=== PATIENT | female | born 1945 | race Hispanic/Latino ===

== ENCOUNTER 2020-01-17 22:06 | Inpatient (IN) | payer OTHER, MEDICARE ==
[~2020-01-17] VITALS: Ht 152.4 cm; Wt 63.0 kg
[2020-01-17] MEDS ORDERED: ACETAMINOPHEN 325 MG TAB ONE (22:47)
[2020-01-17 22:51] LABS: RAPID GROUP A STREP NEGATIVE (NEGATIVE)
[2020-01-17 22:57] LABS: BASOPHILS % (AUTO) 0.1 % (0.0-5.0); HEMATOCRIT 36.1 % (36-48); LYMPHOCYTES % (AUTO) 12.7 % (21.0-51.0); MEAN CORPUSCULAR HEMOGLOBIN 28.2 pg (27.0-33.0); MEAN CORPUSCULAR HGB CONC 32.4 g/dL (32.0-36.0); MONOCYTES % (AUTO) 9.4 % (3.0-13.0); NEUTROPHILS % (AUTO) 77.7 % (40.0-77.0); PLATELET COUNT (AUTO) 210 K/uL (130-400); RED BLOOD CELL COUNT(AUTO) 4.15 MIL/uL (4.00-5.50); RED CELL DISTRIBUTION WIDTH 13.2 % (11.0-15.5); WHITE BLOOD COUNT (AUTO) 7.3 K/uL (4.8-10.8)
[2020-01-17 23:06] LABS: CREATININE 2.4 mg/dL (0.5-1.5); POTASSIUM 3.8 mmol/L (3.5-5.1)
[2020-01-17 23:11] LABS: ALBUMIN 3.1 g/dL (3.5-5.0); BILIRUBIN,TOTAL 0.4 mg/dL (0.2-1.0); TOTAL PROTEIN, SERUM 7.9 g/dL (6.0-8.3)
[2020-01-17 23:12] LABS: INR 0.93 (0.85-1.15); PARTIAL THROMBOPLASTIN TIME 30.6 SEC (26.3-35.5); PROTHROMBIN TIME 10.1 SEC (9.6-11.6)
[2020-01-17 23:28] LABS: B-TYPE NATRIURETIC PEPTIDE 11 pg/mL (0-100)
[2020-01-17 23:42] LABS: ABG BASE EXCESS -2.2 mmol/L (-2.0-3.0); ABG HCO3 22.6 mmol/L (21.0-28.0); ABG OXYGEN SATURATION 91.1 % (95.0-99.0); ABG PCO2 39 mmHg (32-45)
[2020-01-18] MEDS ORDERED: CEFTRIAXONE SODIUM 1 GM ONE ×2 (00:11→22:24)
[2020-01-18] MEDS ORDERED: AZITHROMYCIN 500MG+NS 250ML 250 ML IV ONE (00:11)
[2020-01-18] MEDS ORDERED: OSELTAMIVIR PHOSPHATE 75 MG CAP ONE ×2 (00:12→22:24)
[2020-01-18] MEDS ORDERED: SODIUM CHLORIDE 0.9% 500ML 500 ML IV ONE (01:36)
[2020-01-18] MEDS: CEFTRIAXONE SODIUM 1 GM IVP SCH (02:30)
[2020-01-18] MEDS ORDERED: IPRATROPIUM/ALBUTEROL SULFATE 3 ML SOLUTION IH PRN (02:30)
[2020-01-18] MEDS ORDERED: ONDANSETRON HCL 4 MG/2 ML VIAL IVP PRN (02:30)
[2020-01-18] MEDS ORDERED: ACETAMINOPHEN 325 MG TAB PO PRN (02:30)
[2020-01-18] MEDS ORDERED: DEXAMETHASONE SOD PHOSPHATE 10MG/ML 1ML VIAL ONE (03:00)
[2020-01-18] MEDS: AZITHROMYCIN 500MG+NS 250ML 250 ML IV SCH (03:00)
[2020-01-18] MEDS: DEXAMETHASONE SOD PHOSPHATE 4 MG/ML 1ML VIAL IVP SCH (03:00)
[2020-01-18 06:24] LABS: BASOPHILS % (AUTO) 0.3 % (0.0-5.0); EOSINOPHILS % (AUTO) 1.8 % (0.0-8.0); HEMATOCRIT 33.8 % (36-48); LYMPHOCYTES % (AUTO) 10.5 % (21.0-51.0); MEAN CORPUSCULAR HEMOGLOBIN 28.6 pg (27.0-33.0); MEAN CORPUSCULAR HGB CONC 32.5 g/dL (32.0-36.0); MEAN CORPUSCULAR VOLUME 87.8 fL (79-99); NEUTROPHILS % (AUTO) 82.3 % (40.0-77.0); PLATELET COUNT (AUTO) 191 K/uL (130-400); RED BLOOD CELL COUNT(AUTO) 3.85 MIL/uL (4.00-5.50); RED CELL DISTRIBUTION WIDTH 13.3 % (11.0-15.5); WHITE BLOOD COUNT (AUTO) 6.8 K/uL (4.8-10.8)
[2020-01-18 06:48] LABS: ALBUMIN 2.7 g/dL (3.5-5.0); BILIRUBIN,TOTAL 0.3 mg/dL (0.2-1.0); CREATININE 2.4 mg/dL (0.5-1.5); POTASSIUM 3.9 mmol/L (3.5-5.1); TOTAL PROTEIN, SERUM 7.1 g/dL (6.0-8.3)
[2020-01-18] MEDS ORDERED: ENOXAPARIN SODIUM 60 MG/0.6 ML SQ ONE (10:39)
[2020-01-18] MEDS ORDERED: FAMOTIDINE/PF 20 MG/2 ML VIAL IV ONE (10:39)
[2020-01-18] MEDS: FAMOTIDINE/PF 20 MG/2 ML VIAL IV SCH (10:40)
[2020-01-18] MEDS: ENOXAPARIN SODIUM 40 MG/0.4 ML SYRINGE SQ SCH (10:40)
--- NOTE | 2020-01-18 11:11 | NUR ---
DCP: HOME Sw unable to meet with pt who is in ER. Per daughter Tiesha Urban [phone], pt's grand daughter Viji Marquis lives with pt. Pt is independent, uses no DME. has daily provider (dgtr did not know # of hours or agency) attends [facility]. Per daughter pt was attending until last week when advanced developer tested positive for covid. Family transports as needed. PCP is Dr Hopkins and pt uses [facility] for rx. Plan is home [place] Addendum: 01/18/20 at 1115 by CK DENNIS SS Amended: Links added.
[2020-01-18] MEDS ORDERED: COMPOUND PO MISCELLANEOUS 1 EACH MISC MISC PRN (12:30)
[2020-01-18] MEDS ORDERED: OSELTAMIVIR SUSP 15 MG/ML (6 CAPS/29ML) PO SCH ×2 (13:00)
[2020-01-18] MEDS ORDERED: MAGNESIUM 2GM PREMIX 50ML 50 ML IV PRN (16:30)
[2020-01-18] MEDS ORDERED: POTASSIUM CHLORIDE 20MEQ/100ML 100 ML IV PRN ×2 (16:30)
[2020-01-18] MEDS ORDERED: POTASSIUM CHLORIDE 10% ELIXIR 20 MEQ/15 ML UDCUP PO PRN (16:30)
[2020-01-18] MEDS ORDERED: LIDOCAINE HCL-MPF 1% 2ML VIAL IV PRN ×2 (16:30)
[2020-01-18] MEDS ORDERED: INSULIN HUMULIN R 100 UNIT/ML 3ML ONE ×2 (16:53→22:25)
[2020-01-18] MEDS: INSULIN HUMULIN R 100 UNIT/ML 3ML SQ SCH ×2 (16:55→21:00)
[2020-01-18] MEDS ORDERED: FOLI0.8C PO (17:09)
[2020-01-18] MEDS ORDERED: ASPI-1443 PO (17:09)
[2020-01-18] MEDS ORDERED: BACL10TA PO (17:09)
[2020-01-18] MEDS ORDERED: LOSA1TAB54 PO (17:09)
[2020-01-18] MEDS ORDERED: EMPA10TA PO (17:09)
[2020-01-18] MEDS ORDERED: ATOR10 PO (17:09)
[2020-01-18] MEDS: INSULIN GLARGINE 100 UNITS/ML 10 ML VIAL SQ SCH (21:00)
[2020-01-18] MEDS ORDERED: OSELTAMIVIR PHOSPHATE 75 MG CAP PO SCH (21:00)
[2020-01-18] MEDS ORDERED: ENOXAPARIN SODIUM 40 MG/0.4 ML SYRINGE SQ ONE (22:24)
[2020-01-19] MEDS ORDERED: DEXAMETHASONE SOD PHOSPHATE 10MG/ML 1ML VIAL ONE (00:15)
[2020-01-19] MEDS ORDERED: AZITHROMYCIN 500MG+NS 250ML 0 ML IV ONE (00:15)
[2020-01-19] MEDS ORDERED: AZITHROMYCIN 500MG+NS 250ML 250 ML IV ONE (00:18)
[2020-01-19] MEDS: CEFTRIAXONE SODIUM 1 GM IVP SCH ×2 (02:30→21:10)
[2020-01-19] MEDS: DEXAMETHASONE SOD PHOSPHATE 4 MG/ML 1ML VIAL IVP SCH ×2 (03:00→21:10)
[2020-01-19] MEDS: AZITHROMYCIN 500MG+NS 250ML 250 ML IV SCH ×2 (03:00→23:26)
[2020-01-19 06:32] LABS: BASOPHILS % (AUTO) 0.1 % (0.0-5.0); HEMATOCRIT 32.9 % (36-48); LYMPHOCYTES % (AUTO) 6.9 % (21.0-51.0); MEAN CORPUSCULAR HEMOGLOBIN 27.7 pg (27.0-33.0); MEAN CORPUSCULAR HGB CONC 31.9 g/dL (32.0-36.0); MEAN CORPUSCULAR VOLUME 86.8 fL (79-99); MONOCYTES % (AUTO) 3.2 % (3.0-13.0); NEUTROPHILS % (AUTO) 89.1 % (40.0-77.0); PLATELET COUNT (AUTO) 199 K/uL (130-400); RED BLOOD CELL COUNT(AUTO) 3.79 MIL/uL (4.00-5.50); RED CELL DISTRIBUTION WIDTH 13.2 % (11.0-15.5)
[2020-01-19] MEDS: INSULIN HUMULIN R 100 UNIT/ML 3ML SQ SCH ×4 (07:30→21:07)
[2020-01-19 07:33] LABS: INR 0.96 (0.85-1.15); PARTIAL THROMBOPLASTIN TIME 39.2 SEC (26.3-35.5); PROTHROMBIN TIME 10.4 SEC (9.6-11.6)
[2020-01-19 07:51] LABS: B-TYPE NATRIURETIC PEPTIDE 67 pg/mL (0-100)
[2020-01-19 08:17] LABS: ERYTHROCYTE SEDIMENTATION RATE 73 MM/HR (0-30)
[2020-01-19 08:33] LABS: ALANINE AMINOTRANSFERASE 12 U/L (12-78); ALBUMIN 2.8 g/dL (3.5-5.0); ASPARTATE AMINOTRANSFERASE 18 U/L (10-37); BILIRUBIN,TOTAL 0.2 mg/dL (0.2-1.0); CARBON DIOXIDE 25 mmol/L (21-32); CHLORIDE 102 mmol/L (101-111); CHOLESTEROL 148 mg/dL (<200); CREATINE KINASE, TOTAL 85 U/L (21-232); CREATININE 2.1 mg/dL (0.5-1.5); GLOMERULAR FILTR. RATE CALC 25 mL/min (>60); GLUCOSE,RANDOM 266 mg/dL (70-105); HDL CHOLESTEROL 46 mg/dL (35-85); LACTATE DEHYDROGENASE 201 U/L (81-234); LDL DIRECT 79 mg/dL (0-99); POTASSIUM 3.9 mmol/L (3.5-5.1); SODIUM SERUM 138 mmol/L (136-145); THYROID STIMULATING HORMONE 0.29 uIU/mL (0.36-3.74); TOTAL PROTEIN, SERUM 7.5 g/dL (6.0-8.3); TRIGLYCERIDES 148 mg/dL (30-200); UREA NITROGEN, BLOOD 60 mg/dL (7-18)
[2020-01-19 08:51] LABS: ABG BASE EXCESS -3.6 mmol/L (-2.0-3.0); ABG HCO3 22.1 mmol/L (21.0-28.0); ABG OXYGEN SATURATION 98.3 % (95.0-99.0); ABG PCO2 42 mmHg (32-45)
[2020-01-19] MEDS: ENOXAPARIN SODIUM 40 MG/0.4 ML SYRINGE SQ SCH ×3 (09:00→20:29)
[2020-01-19] MEDS ORDERED: ENOXAPARIN SODIUM 40 MG/0.4 ML SYRINGE SQ ONE (09:17)
[2020-01-19] MEDS ORDERED: FAMOTIDINE/PF 20 MG/2 ML VIAL IV ONE (09:18)
[2020-01-19] MEDS: FAMOTIDINE/PF 20 MG/2 ML VIAL IV SCH (09:21)
[2020-01-19] MEDS: COMPOUNDING VEHICLE NO 8 PO SCH ×6 (09:38→20:28)
[2020-01-19] MEDS: [UNRECOGNIZED DRUG - OTHER] PO SCH ×6 (09:38→20:28)
[2020-01-19] MEDS: OSELTAMIVIR PHOSPHATE PO SCH ×6 (09:38→20:28)
[2020-01-19 09:45] LABS: HEMOGLOBIN A1C 8.2 % (4.0-6.0)
[2020-01-19] MEDS ORDERED: PHARMACY COMMUNICATION MISC SCH (12:15)
[2020-01-19 12:23] VITALS: BP 128/63
[2020-01-19] MEDS: FUROSEMIDE 10 MG/ML 2ML VIAL IV SCH (14:30)
[2020-01-19 16:00] VITALS: BP 132/69
[2020-01-19 20:33] VITALS: BP 125/68
[2020-01-19] MEDS: INSULIN GLARGINE 100 UNITS/ML 10 ML VIAL SQ SCH (21:08)
[2020-01-19 23:44] VITALS: BP 138/74
[2020-01-20] MEDS: FUROSEMIDE 10 MG/ML 2ML VIAL IV SCH ×2 (01:48→14:39)
[2020-01-20 03:25] VITALS: BP 124/58
[2020-01-20 04:33] LABS: CREATININE 2.4 mg/dL (0.5-1.5); POTASSIUM 3.7 mmol/L (3.5-5.1)
--- NOTE | 2020-01-20 06:25 | NUR ---
D-dimer: [phone] Called on-call [employer], no return call at this time.
[2020-01-20] MEDS: INSULIN HUMULIN R 100 UNIT/ML 3ML SQ SCH ×4 (06:31→20:58)
[2020-01-20 08:00] VITALS: BP 161/71
--- NOTE | 2020-01-20 08:46 | NUR ---
DIRECTIVES SW currently unable to assist pt with completing directives since she is in Covid unit. SW to follow and assist if possible when pt is transferred out of unit.
[2020-01-20] MEDS: ENOXAPARIN SODIUM 40 MG/0.4 ML SYRINGE SQ SCH ×2 (09:45→20:55)
[2020-01-20] MEDS: FAMOTIDINE/PF 20 MG/2 ML VIAL IV SCH (09:45)
[2020-01-20] MEDS: OSELTAMIVIR PHOSPHATE PO SCH ×6 (09:54→20:54)
[2020-01-20] MEDS: COMPOUNDING VEHICLE NO 8 PO SCH ×6 (09:54→20:54)
[2020-01-20] MEDS: [UNRECOGNIZED DRUG - OTHER] PO SCH ×6 (09:54→20:54)
[2020-01-20 12:00] VITALS: BP 157/74
[2020-01-20] MEDS ORDERED: BACLOFEN 10 MG TABLET PO PRN (15:45)
[2020-01-20 16:00] VITALS: BP 149/67
[2020-01-20] MEDS ORDERED: DEXTROSE 50%-WATER 50 ML DISP.SYRIN IV PRN (16:00)
[2020-01-20] MEDS ORDERED: POTASSIUM CHLORIDE 20MEQ/100ML 100 ML IV PRN (16:00)
[2020-01-20] MEDS ORDERED: POTASSIUM CHLORIDE 10% ELIXIR 20 MEQ/15 ML UDCUP PO PRN (16:00)
[2020-01-20] MEDS ORDERED: GLUCAGON 1MG KIT 1 MG ML IM PRN (16:00)
[2020-01-20] MEDS ORDERED: POTASSIUM CHLORIDE 20 MEQ ERTAB PO PRN (16:00)
[2020-01-20] MEDS ORDERED: LIDOCAINE HCL-MPF 1% 2ML VIAL IV PRN (16:00)
[2020-01-20] MEDS ORDERED: INSULIN HUMULIN R 100 UNIT/ML 3ML SQ SCH (16:30)
--- NOTE | 2020-01-20 18:34 | NUR ---
PATIENT RECEIVED THIS AM AAOX4. ABLE TO MAKE NEEDS KNOWN. COVID+ WITH PRECAUTIONS MAINTAINED THROUGHOUT THE DAY. AMBULATORY IN ROOM FROM BED TO BATHROOM. MILD DYSPNEA WITH EXERTION. 2L VIA NC. CONTINENT OF B/B. BLOOD GLUCOSES ELEVATED AT LUNCH AND SUPPER REQUIRING 8 UNITS OF REGULAR INSULIN COVERAGE, MICRO PALEONTOLOGIST NOTIFIED TWICE TODAY. NEW ORDER RECEIVED TO INCREASED SSI TO LEVEL 2. PT'S HOME MEDICATIONS CONTINUED. ROCEPHIN DISCONTINUED. NEW ORDER FOR BACTRIM DS AFTER URINE SENSITIVITY RESULTED TODAY. BED IN LOWEST LOCKED POSITION, SR UP X2, CALL CAI IN HAND. SAFETY PRECAUTIONS MAINTAINED.
[2020-01-20 20:36] VITALS: BP 127/70
[2020-01-20] MEDS: ATORVASTATIN CALCIUM 20 MG TABLET PO SCH (20:55)
[2020-01-20] MEDS: SULFAMETHOX-TMP DS 800/160 TAB PO SCH (20:55)
[2020-01-20] MEDS: INSULIN GLARGINE 100 UNITS/ML 10 ML VIAL SQ SCH (20:56)
[2020-01-20] MEDS: DEXAMETHASONE SOD PHOSPHATE 4 MG/ML 1ML VIAL IVP SCH (22:47)
[2020-01-20] MEDS: AZITHROMYCIN 500MG+NS 250ML 250 ML IV SCH (22:47)
--- NOTE | 2020-01-20 23:31 | NUR ---
assessment Patient is alert and oriented times 4. No complaints of any pain. Patient is on oxygen at 2 liters. Patient has an IV in her right forearm saline locked. No skin issues. Will continue to monitor.
[2020-01-20 23:34] VITALS: BP 141/72
[2020-01-21] MEDS: FUROSEMIDE 10 MG/ML 2ML VIAL IV SCH ×2 (01:52→14:32)
[2020-01-21 03:21] VITALS: BP 143/68
[2020-01-21 06:06] LABS: HEMATOCRIT 36.4 % (36-48); LYMPHOCYTES % (AUTO) 7.4 % (21.0-51.0); MEAN CORPUSCULAR HEMOGLOBIN 28.1 pg (27.0-33.0); MEAN CORPUSCULAR HGB CONC 32.1 g/dL (32.0-36.0); MEAN CORPUSCULAR VOLUME 87.3 fL (79-99); MONOCYTES % (AUTO) 2.1 % (3.0-13.0); NEUTROPHILS % (AUTO) 90.1 % (40.0-77.0); PLATELET COUNT (AUTO) 297 K/uL (130-400); RED BLOOD CELL COUNT(AUTO) 4.17 MIL/uL (4.00-5.50); RED CELL DISTRIBUTION WIDTH 13.2 % (11.0-15.5); WHITE BLOOD COUNT (AUTO) 8.9 K/uL (4.8-10.8)
[2020-01-21 06:38] LABS: ALBUMIN 3.1 g/dL (3.5-5.0); BILIRUBIN,TOTAL 0.2 mg/dL (0.2-1.0); CREATININE 2.1 mg/dL (0.5-1.5); POTASSIUM 3.4 mmol/L (3.5-5.1); TOTAL PROTEIN, SERUM 7.7 g/dL (6.0-8.3)
[2020-01-21] MEDS: INSULIN HUMULIN R 100 UNIT/ML 3ML SQ SCH ×4 (06:44→20:57)
[2020-01-21 08:00] VITALS: BP 148/66
[2020-01-21] MEDS: ASPIRIN 81 MG EC TAB PO SCH (08:31)
[2020-01-21] MEDS: FOLIC ACID 1 MG TABLET PO SCH (08:31)
[2020-01-21] MEDS: POTASSIUM CHLORIDE 20 MEQ ERTAB PO PRN ×2 (08:31→14:32)
[2020-01-21] MEDS: FAMOTIDINE/PF 20 MG/2 ML VIAL IV SCH (08:31)
[2020-01-21] MEDS: HYDROCHLOROTHIAZIDE 25 MG TABLET PO SCH (08:31)
[2020-01-21] MEDS: SULFAMETHOX-TMP DS 800/160 TAB PO SCH ×2 (08:31→20:55)
[2020-01-21] MEDS: LOSARTAN 100 MG TABLET PO SCH (08:31)
[2020-01-21] MEDS: ENOXAPARIN SODIUM 60 MG/0.6 ML SQ SCH ×2 (08:32→20:55)
[2020-01-21] MEDS: [UNRECOGNIZED DRUG - OTHER] PO SCH ×6 (08:46→20:56)
[2020-01-21] MEDS: COMPOUNDING VEHICLE NO 8 PO SCH ×6 (08:46→20:56)
[2020-01-21] MEDS: OSELTAMIVIR PHOSPHATE PO SCH ×6 (08:46→20:56)
[2020-01-21 12:00] VITALS: BP 135/63
[2020-01-21 16:00] VITALS: BP 141/65
--- NOTE | 2020-01-21 18:25 | NUR ---
AAOX4. OOB IN CHAIR IN NO APPARENT DISTRESS. COVID+, ISOLATION PRECAUTIONS MAINTAINED. DENIES ANY NEEDS/PAIN. RESPIRATIONS EVEN AND UNLABORED AT REST. TOLERATING ROOM AIR, 02 SATS STABLE. AMBULATORY IN ROOM. BLOOD GLUCOSES ELEVATED AT LUNCH AND SUPPER REQUIRING REGULAR SSI COVERAGE. CONTINUOUS MONITORING ONGOING. SAFETY MEASURES IN PLACE.
[2020-01-21 19:00] VITALS: BP 132/71
[2020-01-21] MEDS: DEXAMETHASONE SOD PHOSPHATE 4 MG/ML 1ML VIAL IVP SCH (20:55)
[2020-01-21] MEDS: ATORVASTATIN CALCIUM 20 MG TABLET PO SCH (20:55)
[2020-01-21] MEDS: INSULIN GLARGINE 100 UNITS/ML 10 ML VIAL SQ SCH (20:58)
[2020-01-21 23:39] VITALS: BP 128/60
[2020-01-21] MEDS: AZITHROMYCIN 500MG+NS 250ML 250 ML IV SCH (23:59)
[2020-01-22] MEDS: FUROSEMIDE 10 MG/ML 2ML VIAL IV SCH ×2 (01:56→14:34)
--- NOTE | 2020-01-22 02:13 | NUR ---
ASSESSMENT PT. ALERT AND ORIENTED TIMES 4 NO COMPLAINTS OF ANY PAIN. PT. UP INDEPENDENTLY TO THE BATHROOM. PT. CONTINUES TO BE ON ROOM AIR. WILL CONTINUE TO MONITOR PATIENTS CONDITION.
[2020-01-22 03:56] VITALS: BP 122/58
[2020-01-22 05:18] LABS: ABG BASE EXCESS 2.6 mmol/L (-2.0-3.0); ABG OXYGEN SATURATION 92.9 % (95.0-99.0); ABG PCO2 41 mmHg (32-45)
[2020-01-22 06:17] LABS: BASOPHILS % (AUTO) 0.1 % (0.0-5.0); HEMATOCRIT 35.2 % (36-48); LYMPHOCYTES % (AUTO) 7.7 % (21.0-51.0); MEAN CORPUSCULAR HEMOGLOBIN 27.7 pg (27.0-33.0); MEAN CORPUSCULAR HGB CONC 32.7 g/dL (32.0-36.0); MEAN CORPUSCULAR VOLUME 84.8 fL (79-99); MONOCYTES % (AUTO) 3.1 % (3.0-13.0); NEUTROPHILS % (AUTO) 88.6 % (40.0-77.0); PLATELET COUNT (AUTO) 301 K/uL (130-400); RED BLOOD CELL COUNT(AUTO) 4.15 MIL/uL (4.00-5.50); WHITE BLOOD COUNT (AUTO) 9.3 K/uL (4.8-10.8)
[2020-01-22 06:44] LABS: BILIRUBIN,TOTAL 0.3 mg/dL (0.2-1.0); CREATININE 2.5 mg/dL (0.5-1.5); TOTAL PROTEIN, SERUM 7.3 g/dL (6.0-8.3)
[2020-01-22] MEDS: INSULIN HUMULIN R 100 UNIT/ML 3ML SQ SCH ×4 (08:39→20:31)
[2020-01-22] MEDS: LOSARTAN 100 MG TABLET PO SCH (08:40)
[2020-01-22] MEDS: SULFAMETHOX-TMP DS 800/160 TAB PO SCH ×2 (08:40→20:29)
[2020-01-22] MEDS: ENOXAPARIN SODIUM 60 MG/0.6 ML SQ SCH (08:40)
[2020-01-22] MEDS: HYDROCHLOROTHIAZIDE 25 MG TABLET PO SCH (08:40)
[2020-01-22] MEDS: ASPIRIN 81 MG EC TAB PO SCH (08:40)
[2020-01-22] MEDS: FOLIC ACID 1 MG TABLET PO SCH (08:40)
[2020-01-22] MEDS: FAMOTIDINE/PF 20 MG/2 ML VIAL IV SCH (08:40)
[2020-01-22 08:48] VITALS: BP 146/57
[2020-01-22] MEDS: OSELTAMIVIR PHOSPHATE PO SCH ×6 (08:51→20:29)
[2020-01-22] MEDS: [UNRECOGNIZED DRUG - OTHER] PO SCH ×6 (08:51→20:29)
[2020-01-22] MEDS: COMPOUNDING VEHICLE NO 8 PO SCH ×6 (08:51→20:29)
[2020-01-22 12:51] VITALS: BP 135/67
[2020-01-22 16:37] VITALS: BP 131/61
[2020-01-22 20:04] VITALS: BP 115/66
[2020-01-22] MEDS: ATORVASTATIN CALCIUM 20 MG TABLET PO SCH (20:29)
[2020-01-22] MEDS: INSULIN GLARGINE 100 UNITS/ML 10 ML VIAL SQ SCH (20:30)
[2020-01-22] MEDS: DEXAMETHASONE SOD PHOSPHATE 4 MG/ML 1ML VIAL IVP SCH (20:32)
[2020-01-23 00:04] VITALS: BP 119/66
--- NOTE | 2020-01-23 03:00 | NUR ---
assessment patient alert and oriented times 4. no complaints of any pain. patient is on room air. will continue to monitor
[2020-01-23 04:04] VITALS: BP 120/59
[2020-01-23] MEDS: INSULIN HUMULIN R 100 UNIT/ML 3ML SQ SCH ×2 (06:16→11:42)
[2020-01-23 08:00] VITALS: BP 124/69
[2020-01-23] MEDS: ASPIRIN 81 MG EC TAB PO SCH (08:54)
[2020-01-23] MEDS: LOSARTAN 100 MG TABLET PO SCH (08:54)
[2020-01-23] MEDS: FAMOTIDINE/PF 20 MG/2 ML VIAL IV SCH (08:54)
[2020-01-23] MEDS: SULFAMETHOX-TMP DS 800/160 TAB PO SCH (08:54)
[2020-01-23] MEDS: FOLIC ACID 1 MG TABLET PO SCH (08:55)
[2020-01-23] MEDS ORDERED: ENOXAPARIN SODIUM 40 MG/0.4 ML SYRINGE SQ SCH (09:00)
[2020-01-23] MEDS: [UNRECOGNIZED DRUG - OTHER] PO SCH ×3 (09:00)
[2020-01-23] MEDS: COMPOUNDING VEHICLE NO 8 PO SCH ×3 (09:00)
[2020-01-23] MEDS: OSELTAMIVIR PHOSPHATE PO SCH ×3 (09:00)
[2020-01-23] MEDS ORDERED: COMPOUNDING VEHICLE NO 8 PO SCH ×3 (10:17)
[2020-01-23] MEDS ORDERED: OSELTAMIVIR PHOSPHATE PO SCH ×3 (10:17)
[2020-01-23] MEDS ORDERED: [UNRECOGNIZED DRUG - OTHER] PO SCH ×3 (10:17)
[2020-01-23 12:00] VITALS: BP 125/63
--- NOTE | 2020-01-23 13:40 | NUR ---
AAOX4. OOB IN CHAIR IN NO APPARENT DISTRESS. COVID+, ISOLATION PRECAUTIONS MAINTAINED. DENIES ANY NEEDS/PAIN. RESPIRATIONS EVEN AND UNLABORED AT REST. TOLERATING ROOM AIR, 02 SATS STABLE. SAFETY MEASURES IN PLACE. DR. RANDALL ROUNDED WITH VERBAL ORDERS TO STOP BACTRIM DS AND LOSARTAN/HCTZ. VERBAL ORDER RECEIVED TO DISCHARGE PATIENT HOME AFTER DR. RANDALL SPOKE WITH PT'S DAUGHTER, ANNE, EXPLAINING DETAILS OF PATIENT'S CARE AND RECOMMENDATIONS FOR 14 DAY ISOLATION. ANNE INFORMED PER DR. RANDALL TO TAKE PATIENT TO PCP TOMORROW FOR FOLLOW-UP WITH CREATININE LEVEL, UNDERSTANDING VERBALIZED.
--- NOTE | 2020-01-23 15:00 | NUR ---
DISCHARGE INSTRUCTIONS REVIWED WITH PATIENT. DISCHARGE TEACHING DONE. PATIENT VERBALIZED UNDERSTANDING.
--- NOTE | 2020-01-23 17:30 | NUR ---
PT TRANSFERRED VIA WHEELCHAIR TO PRIVATE VEHICLE FOR DISCHARGE HOME. ACCOMPANIED BY DAUGHTER.
== END 2020-01-23 17:30 | disposition home or self-care (01) | DRG 177 ==
LOC: EDH 22:06 → OBSVTOIN 01-18 01:11 → EDHIP 01-18 01:11 → 4BH 01-19 10:25
PROVIDERS: ADMIT Internal Medicine Critical Care Medicine; ATTEND Internal Medicine Critical Care Medicine
DX: U07.1 COVID-19 (principal); J12.89 Other viral pneumonia; J10.08 Influenza due to other identified influenza virus with other specified pneumonia; J96.01 Acute respiratory failure with hypoxia; N17.9 Acute kidney failure, unspecified; R78.81 Bacteremia; N18.9 Chronic kidney disease, unspecified; E11.22 Type 2 diabetes mellitus with diabetic chronic kidney disease; I12.9 Hypertensive chronic kidney disease with stage 1 through stage 4 chronic kidney disease, or unspecified chronic kidney disease; B95.7 Other staphylococcus as the cause of diseases classified elsewhere; D64.9 Anemia, unspecified; E11.51 Type 2 diabetes mellitus with diabetic peripheral angiopathy without gangrene; E78.5 Hyperlipidemia, unspecified; Z79.82 Long term (current) use of aspirin; Z79.84 Long term (current) use of oral hypoglycemic drugs; Z79.899 Other long term (current) drug therapy
CPT/HCPCS: 36415; 36600; 71045; 71250; 80048; 80053; 80061; 82550; 82728; 82803; 82948; 83036; 83605; 83615; 83735; 83880; 84145; 84439; 84443; 84484; 85025; 85378; 85610; 85651; 85730; 86140; 87040; 87077; 87186; 87804; 87880; 93005; G0378; J0456; J0696; J1100; J1650; J1815; J1940; J3490; J7040; U0003

== ENCOUNTER 2020-08-31 10:01 | Emergency (ER) | payer OTHER, MEDICARE ==
[~2020-08-31 10:01] MED LIST: AMLO-257 PO; ASPI-1443 PO; ATOR10 PO; BACL10TA PO; EMPA10TA PO; FOLI0.8C PO; INSU3INS3 SQ
[2020-08-31 10:35] LABS: BASOPHILS % (AUTO) 0.6 % (0.0-5.0); EOSINOPHILS % (AUTO) 1.5 % (0.0-8.0); HEMATOCRIT 36.7 % (36-48); LYMPHOCYTES % (AUTO) 13.1 % (21.0-51.0); MEAN CORPUSCULAR HEMOGLOBIN 27.2 pg (27.0-33.0); MEAN CORPUSCULAR HGB CONC 32.4 g/dL (32.0-36.0); MONOCYTES % (AUTO) 4.8 % (3.0-13.0); NEUTROPHILS % (AUTO) 79.7 % (40.0-77.0); PLATELET COUNT (AUTO) 297 K/uL (130-400); RED BLOOD CELL COUNT(AUTO) 4.37 MIL/uL (4.00-5.50); RED CELL DISTRIBUTION WIDTH 13.3 % (11.0-15.5); WHITE BLOOD COUNT (AUTO) 9.8 K/uL (4.8-10.8)
[2020-08-31 10:55] LABS: INR 0.94 (0.85-1.15); PROTHROMBIN TIME 10.3 SEC (9.6-11.6)
[2020-08-31 10:56] LABS: PARTIAL THROMBOPLASTIN TIME 25.4 SEC (26.3-35.5)
[2020-08-31 11:03] LABS: ALBUMIN 3.9 g/dL (3.5-5.0); BILIRUBIN,TOTAL 0.3 mg/dL (0.2-1.0); CREATININE 2.2 mg/dL (0.5-1.5); POTASSIUM 4.3 mmol/L (3.5-5.1); TOTAL PROTEIN, SERUM 8.8 g/dL (6.0-8.3)
[2020-08-31 11:05] LABS: CREATINE KINASE, TOTAL 138 U/L (21-232); MYOGLOBIN 153 ng/mL (10-92); TROPONIN I < 0.04 ng/mL (0.00-0.06)
[2020-08-31] MEDS ORDERED: INSULIN HUMULIN R 100 UNIT/ML 3ML ONE (11:41)
[2020-08-31] MEDS ORDERED: 0.9%NACL 1000ML 1,000 ML IV ONE ×2 (11:41→12:36)
== END 2020-08-31 15:29 | disposition home or self-care (01) ==
LOC: EDH 10:01
DX: E86.0 Dehydration (principal); E11.9 Type 2 diabetes mellitus without complications; R55 Syncope and collapse; I10 Essential (primary) hypertension; E78.00 Pure hypercholesterolemia, unspecified
CPT/HCPCS: 36415; 70450; 71045; 80053; 82550; 82948; 83874; 84484; 85025; 85610; 85730; 93005; 96361; 96374; 99285; J1815; J7030 ×2